=== PATIENT | female | born 1945 | race Caucasian/White ===

== ENCOUNTER 2020-03-31 08:44 | Outpatient (CLI) | payer OTHER, SELFPAY ==
--- NOTE | ~2020-03-31 | DEXA_ITS ---
Bone Density Report Name: Jenniffer Rebollar Age: 74 Sex: Female Ethnicity: White Date of : 1945 Indication: postmenopausal; parental hip fracture; height loss; hysterectomy; Referring Provider: Jazmyne, Basil Study: Bone densitometry was performed. Exam Date: March 31, 2020 Accession number: [id number] Bone Density: Region BMD T-score Z-score Classification AP Spine (L1-L4) 0.850 -1.8 0.6 Osteopenia Femoral Neck (Left) 0.586 -2.4 -0.3 Osteopenia Total Hip (Left) 0.720 -1.8 -0.1 Osteopenia Total Hip Bilateral Avg 0.697 -2.0 -0.3 Osteopenia Femoral Neck (Right) 0.557 -2.6 -0.6 Osteoporosis Total Hip (Right) 0.672 -2.2 -0.4 Osteopenia World Health Organization criteria for BMD impression classify patients as: Normal (T-score at or above -1.0), Osteopenia (T-score between -1.0 and -2.5), or Osteoporosis (T-score at or below -2.5). 10-year Fracture Risk: FRAX not reported because: Some T-score for Spine Total or Hip Total or Femoral Neck at or below -2.5 Clinical Information Provided by Patient: Parent has had a hip fracture Has used the following medications: Calcium Has the following medical conditions: Hysterectomy Patient maximum height was 67 Menopause Age: 50 Drinks caffeinated beverages Onset of menses at age 13 Number of children 2 Impression: The patient has osteoporosis, based on the Right Femoral Neck T-score. The patient has risk factors, including: parental hip fracture. Discussion: INCREASED RISK OF FRACTURE. BONE DENSITY IS UNDESIRABLY LOW AT ONE OR MORE SKELETAL SITES, CONSISTENT WITH POSTMENOPAUSAL OSTEOPOROSIS. This patient's lowest T-score meets the World Health Organization's (WHO) criteria for osteoporosis at one or more sites (T-score -2.5 or below). In untreated patients, the risk of osteoporotic fracture increases approximately two-fold for each 1.0 SD decrease in T-score. Low bone density is not the only risk factor for fracture; also consider factors such as patient's age, frailty or poor health, risk of falling, risk of injury, previous osteoporotic fracture, family history of osteoporosis, cigarette smoking, low body weight, etc. Not everyone with low bone mineral density has osteoporosis; osteomalacia and other metabolic bone disorders should also be considered. Patients who have osteoporosis should be evaluated for specific diseases and conditions (secondary causes) that may cause or contribute to bone loss. The [place] [employer] (AACE) and National Osteoporosis Foundation (NOF) recommend pharmacologic intervention for all postmenopausal women whose T-score is in this range. The patient should follow a healthful lifestyle (good nutrition with adequate calcium and vitamin D, and appropriate weight-bearing exercise). Follow-Up: Consider a repeat BM
== END 2020-03-31 08:45 | disposition home or self-care (01) ==
LOC: ANHIMG 08:53
PROVIDERS: Visit Provider Student in an Organized Health Care Education/Training Program
DX: M85.88 Other specified disorders of bone density and structure, other site (principal); M85.852 Other specified disorders of bone density and structure, left thigh; M85.851 Other specified disorders of bone density and structure, right thigh; M81.0 Age-related osteoporosis without current pathological fracture
CPT/HCPCS: 77080

== ENCOUNTER 2020-04-09 13:07 | Emergency (ER) | payer OTHER, SELFPAY ==
--- NOTE | ~2020-04-09 | XR_ITS ---
XR hip LT 2V w AP pelvis 04/09/2020 13:45 Indication: Status post fall. Left hip pain. Procedure: 3 views left hip Comparison: No prior studies for comparison. Findings: No acute fracture or traumatic malalignment. Pelvic rings are intact. Sacral foramen are sy mmetric. There is lower lumbar spondylosis. Osteopenia. Impression: 1: No acute fracture. Reviewed, dictated and finalized at location A. OGY PHYSICIAN ASSISTANT Impression: 1: No acute fracture.
[2020-04-09 13:16] VITALS: BP 154/80; PULSE 81; RESP 18; TEMP 36.6; O2SAT 99
--- NOTE | 2020-04-09 13:30 | ED.FALL ---
HPI - Fall General Chief Complaint: Extremity Injury, Lower Stated Complaint: Fall Source: patient and RN notes reviewed Mode of arrival: ambulatory Limitations: no limitations History of Present Illness HPI Narrative: This is a 74-year-old white female who presented to urgent care today with complaints of left hip pain status post fall. According to patient 1 week ago she fell and tripped on a curtain [place] and landed on her left lateral side she did note that she had bruises on her upper extremity none on her left hip or lower extremities. she also noted that she had to walk with a cane 2 to 3 days after her fall and she had pain to the left leg when she bear weight to it. Patient noted that at home she used a heating pad Tylenol and Advil and her pain was the worst when she would stand up or sit down. Patient did note that her pain is at a bare minimum when she is a sitting position. patient describes the pain as a sharp pain she does deny any radiating pain. The patient denies SOB, CP, palpitation, extremity numbness, lightheadedness, dizziness, constipation, diarrhea, chills, or fever This document was completed by using [employer] speech recognition software, therefore reinforcing bar setter variances may occur. Despite proofreading, typographical errors may also occur. Related Data Home Medications Medication Instructions Recorded Confirmed levothyroxine 50 mcg PO DAILY 04/09/20 04/09/20 risedronate 150 mg PO MONTHLY 04/09/20 04/09/20 Allergies Allergy/AdvReac Type Severity Reaction Status Date / Time No Known Allergies Allergy Verified 04/09/20 13:23 Review of Systems Review of Systems: All systems reviewed & are unremarkable except as noted in HPI and below (10 point system reviewed) Exam Narrative: Exam Narrative: GENERAL: This is a well-nourished, well-developed patient, in no apparent distress. HEAD: normocephalic, atraumatic. EYES: PERRL. Sclera clear/white. Vision is grossly intact. EARS: External ears normal, auditory canals clear and without drainage, TMs normal without perforation. Hearing grossly intact. NOSE: External nose normal with no obvious nasal discharge, nares without redness, no rhinorrhea. THROAT: Mucous membranes moist, posterior pharynx clear. NECK: Neck supple, non-tender without lymphadenopathy, masses or thyromegaly. CARDIOVASCULAR: Regular rate and rhythm without murmurs, gallops, or rubs. RESPIRATORY: Clear to auscultation. Breath sounds equal bilaterally. No wheezes, rales, or rhonchi. GASTROINTESTINAL: Abdomen soft, non-tender, nondistended. Bowel sounds are active. No hepato-splenomegaly, or palpable masses. No guarding. SKIN: warm, intact with no suspicious lesions or rash, good texture and turgor. NEURO: awake, alert, and oriented to person, place and time. There were no obvious focal neurologic abnormalities. Steady gait EXTREMITIES: Pain with range of motion to her left lower extremities, no pain with palpation ,pain increased with extension of leg, increase no edema. No calf tenderness. Negative Homans sign bilaterally. Pulses are palpable sensation present BACK: Nontender without deformity or crepitance. No flank tenderness. Course Vital Signs Vital signs: Vital Signs Temperature 97.9 F 04/09/20 13:16 Pulse Rate 81 04/09/20 13:16 Respiratory Rate 18 04/09/20 13:16 Blood Pressure 154/80 H 04/09/20 13:16 Pulse Oximetry 99 04/09/20 13:16 Temperature 97.9 F 04/09/20 13:16 Pulse Rate 81 04/09/20 13:16 Respiratory Rate 18 04/09/20 13:16 Blood Pressure 154/80 H 04/09/20 13:16 Pulse Oximetry 99 04/09/20 13:16 MDM - Fall Differential Diagnosis Differential diagnosis: Likely other (Hip fracture versus strain versus sprain) Discharge Plan Discharge Clinical Impression: Sprain and strain of hip Patient Disposition: Home, Self-Care Condition: Stable Instructions: Antibiotic Form Additional Instructions: Ice to the area 20-30 min
== END 2020-04-09 14:04 | disposition home or self-care (01) ==
PROVIDERS: Emergency Provider Nurse Practitioner; PCP Student in an Organized Health Care Education/Training Program
DX: S73.102A Unspecified sprain of left hip, initial encounter (principal); S76.012A Strain of muscle, fascia and tendon of left hip, initial encounter; W18.09XA Striking against other object with subsequent fall, initial encounter; M81.0 Age-related osteoporosis without current pathological fracture; E03.9 Hypothyroidism, unspecified
CPT/HCPCS: 73502; 99213; G0463